=== PATIENT | male | born 1965 | race Caucasian/White ===

== ENCOUNTER 2024-02-10 14:24 | Emergency (ER) | payer OTHER ==
[~2024-02-10] VITALS: Ht 177.8 cm; Wt 91.0 kg
[2024-02-10 14:31] VITALS: TEMP 98.3; O2SAT 98
[2024-02-10] MEDS: IBUPROFEN 600MG TABLET PO STA (18:03)
[2024-02-10] MEDS ORDERED: IBUP-2029 MT (18:37)
[2024-02-10] MEDS ORDERED: CYCL10TA21 MT (18:37)
[2024-02-10 18:51] VITALS: BP 176/92; PULSE 71; RESP 16
== END 2024-02-10 18:56 | disposition home or self-care (01) ==
LOC: ER 14:24
DX: S20.219A Contusion of unspecified front wall of thorax, initial encounter (principal); S30.1XXA Contusion of abdominal wall, initial encounter; E11.9 Type 2 diabetes mellitus without complications; I10 Essential (primary) hypertension; V98.8XXA Other specified transport accidents, initial encounter; Y93.89 Activity, other specified; Y92.89 Other specified places as the place of occurrence of the external cause; Y99.8 Other external cause status
CPT/HCPCS: 71045; 74018; 99284